=== PATIENT | female | born 1965 | race Caucasian/White ===

== ENCOUNTER 2018-01-26 16:40 | Inpatient (IN) | payer OTHER ==
[~2018-01-26] VITALS: Ht 157.5 cm; Wt 85.3 kg
[2018-02-03] MEDS ORDERED: OXYC1TAB9 PO (16:33)
[2018-02-03] MEDS ORDERED: INTESTINEX680 M1 PO (16:34)
[2018-02-03] MEDS ORDERED: PROTONIX40 MG PO (16:34)
== END 2018-02-03 17:30 | disposition home or self-care (01) | DRG 330 ==
LOC: ER 16:40 → SURH 19:19
PROVIDERS: Surgery
PROC: 8E0ZXY6 Isolation (ICD-10-PCS; 2018-01-27)
PROC: 30233N1 Transfusion of Nonautologous Red Blood Cells into Peripheral Vein, Percutaneous Approach (ICD-10-PCS; 2018-01-27)
PROC: B246ZZZ Ultrasonography of Right and Left Heart (ICD-10-PCS; 2018-01-29)
PROC: 07TC4ZZ Resection of Pelvis Lymphatic, Percutaneous Endoscopic Approach (ICD-10-PCS; 2018-01-30)
PROC: 0DTG4ZZ Resection of Left Large Intestine, Percutaneous Endoscopic Approach (ICD-10-PCS; principal; 2018-01-30 06:00)
PROC: B34JZZZ Ultrasonography of Left Upper Extremity Arteries (ICD-10-PCS; 2018-01-31)
DX: C18.5 Malignant neoplasm of splenic flexure (principal); C78.7 Secondary malignant neoplasm of liver and intrahepatic bile duct; C78.01 Secondary malignant neoplasm of right lung; K56.699 Other intestinal obstruction unspecified as to partial versus complete obstruction; I82.622 Acute embolism and thrombosis of deep veins of left upper extremity; D50.0 Iron deficiency anemia secondary to blood loss (chronic); I11.9 Hypertensive heart disease without heart failure